=== PATIENT | female | born 1995 | race Caucasian/White ===

== ENCOUNTER 2016-08-26 15:33 | Emergency (ER) | payer OTHER ==
--- NOTE | 2016-08-26 17:27 | ED ---
Respiratory - HPI Summary HPI Summary: 21 F with dry cough and chills since Friday. She was diagnosed with bronchitis two weeks ago and prescribed amoxicillin and prednisone which she says resolved her symptoms. she developed generalized aches, chills, sore throat, sinus congestions, and one episode of loose stool starting on friday. she has been taking Tylenol mucinex,and and using an inhaler which has been helping. - History of Current Complaint Chief Complaint: UCRespiratory Stated Complaint: COUGH Time Seen by Provider: 08/26/16 17:16 - Allergy/Home Medications Allergies/Adverse Reactions: Allergies Allergy/AdvReac Type Severity Reaction Status Date / Time No Known Allergies Allergy Verified 08/26/16 16:53 Home Medications: Home Medications Acetaminophen TAB* [Tylenol TAB*] 1 tab PRN 08/26/16 [History] Levalbuterol HFA INHALER* [Xopenex Hfa Inhaler*] 1 puff PRN 08/26/16 [History] PMH/Surg Hx/FS Hx/Imm Hx Endocrine/Hematology History: Denies: Hx Anticoagulant Therapy Cardiovascular History: Denies: Hx Hypertension Respiratory History: Denies: Hx Asthma - Exercise-induced Musculoskeletal History: Reports: Other Musculoskeletal History - Surgical History Surgery Procedure, Year, and Place: LEFT hand. RIGHT foot- pin placed in toe Infectious Disease History: No Infectious Disease History: Denies: Traveled Outside the [place] in Last 30 Days - Family History Known Family History: Negative: Cardiac Disease - Social History Occupation: Student Alcohol Use: None Substance Use Type: Reports: None Smoking Status (MU): Never Smoked Tobacco Review of Systems Negative: Fever Positive: Sore Throat, Nasal Discharge Negative: Chest Pain Positive: Cough. Negative: Shortness Of Breath Positive: Diarrhea - one episode of loose stool. Negative: Abdominal Pain, Vomiting, Nausea All Other Systems Reviewed And Are Negative: Yes Physical Exam Triage Information Reviewed: Yes Vital Signs On Initial Exam: Initial Vitals Temp Pulse Resp BP Pulse Ox 99 F 82 18 124/89 98 08/26/16 16:55 08/26/16 16:55 08/26/16 16:55 08/26/16 16:55 08/26/16 16:55 Vital Signs Reviewed: Yes Appearance: Positive: Well-Appearing Skin: Positive: Warm, Dry Head/Face: Positive: Normal Head/Face Inspection Eyes: Positive: Normal, EOMI, Conjunctiva Clear ENT: Positive: Normal ENT inspection, Pharyngeal erythema, Nasal congestion, TMs normal. Negative: Tonsillar swelling, Tonsillar exudate, Trismus, Muffled/ hoarse voice Neck: Positive: Supple, Nontender, No Lymphadenopathy Respiratory/Lung Sounds: Positive: Clear to Auscultation, Breath Sounds Present , Other - neg egophony. Negative: Wheezes Cardiovascular: Positive: Normal, RRR Diagnostics - Vital Signs Vital Signs Temp Pulse Resp BP Pulse Ox 08/26/16 16:55 99 F 82 18 124/89 98 - Laboratory Lab Statement: Any lab studies that have been ordered have been reviewed, and results considered in the medical decision making process. Disposition - Course Course Of Treatment: 21 F presents with cold like symptoms for 2 days. had previous episode of bronchitis this month that resolved. denies any wehazing or SOB, has old inahler that has been using and says helps with the cough, discussed centor criteria zero so unlikely to be strept, do not hear any evidence of conslidation on exam so unlikely to have pneumonia at this point, discussed that has viral illness, will treat supporatively, patient agrees with plan - Differential Dx - Cardiopulmonary Differential Diagnoses - Cardiopulmonary: Bronchitis, Influenza, Lower Resp Infection, Other - pneumonia - Diagnoses Provider Diagnoses: Bronchitis Discharge - Discharge Plan Condition: Good Disposition: HOME Prescriptions: Benzonatate CAP* [Tessalon CAP*] 100 mg PO TID #15 cap Fluticasone NASAL SPRAY 50MCG* [Flonase NASAL SPRAY 50MCG*] 2 spray BOTH NARES DAILY #1 btl Patient Education Materials: Acute Bronchitis (ED) Referrals: Non Staff,Doctor [Primary Care Provider] - Additional Instructions: Use Tessalon three times a day for cough Use intranasal steroid one spray each nostril twice a day Use inhaler as needed every 4-6 hours for cough Use saline in the nose Use humidifier or place warm bowls of water around the room Cough can last up to 4 weeks Follow up with Sonny in 7 days Return to ED if develop chest pain or shortness of breath or any new or worsening symptoms
== END 2016-08-26 17:41 | disposition home or self-care (01) ==
LOC: UCEAST 15:33
DX: J40 Bronchitis, not specified as acute or chronic (principal)
CPT/HCPCS: 99202; G0463

== ENCOUNTER 2018-08-25 22:41 | Emergency (ER) | payer OTHER ==
--- NOTE | 2018-08-25 23:53 | ED ---
Palpitations / Dysrhythmia - HPI Summary HPI Summary: Pt is a 23 y/o female who presents to the ED c/o palpitations. She states for the past 6 days shes been having intermittent palpitations. The palpitations are described as slowing down then speeding up, with sometimes skipping beats. The symptoms are made worse with exertion, and she feels SOB when walking. Pt also c/o fatigue and intermittent sharp pain in the chest of her chest. She denies any cough, sore throat, syncope, or N/V/D. She notes that she occasionally has had palpitations in the past, but never to the extent of 6 days. Pt states her heart rate went up to 170 bpm yesterday when walking upstairs. Pt has a family hx of AFib. She notes the first week of classes to be a source of stress. - History of Current Complaint Chief Complaint: EDDysrhythmPalp Time Seen by Provider: 08/25/18 23:48 Hx Obtained From: Patient Onset/Duration: Gradual Onset, Lasting Days - 6 Timing: Intermittent Episodes Lasting: Severity Currently: None Character: Slow, Fast, Irregular Aggravating: Exertion Alleviating: Nothing Associated Signs & Symptoms: Chest Pain, Shortness of Breath - Allergy/Home Medications Allergies/Adverse Reactions: Allergies Allergy/AdvReac Type Severity Reaction Status Date / Time peanut Allergy Swelling Verified 08/25/18 22:52 Of Face,Lips,& Throat PMH/Surg Hx/FS Hx/Imm Hx Endocrine/Hematology History: Denies: Hx Anticoagulant Therapy Cardiovascular History: Denies: Hx Hypertension Respiratory History: Denies: Hx Asthma - Exercise-induced Musculoskeletal History: Reports: Other Musculoskeletal History - Surgical History Surgery Procedure, Year, and Place: LEFT hand. RIGHT foot- pin placed in toe Infectious Disease History: No Infectious Disease History: Reports: Traveled Outside the [place] in Last 30 Days - [place] - Family History Known Family History: Positive: Cardiac Disease - afib - Social History Alcohol Use: None Hx Substance Use: No Substance Use Type: Reports: None Hx Tobacco Use: No Smoking Status (MU): Never Smoked Tobacco Review of Systems Positive: Fatigue Negative: Sore Throat Positive: Palpitations, Chest Pain Positive: Shortness Of Breath. Negative: Cough Negative: Vomiting, Diarrhea, Nausea Negative: Syncope All Other Systems Reviewed And Are Negative: Yes Physical Exam - Summary Physical Exam Summary: Appearance: Well appearing, no pain distress Skin: warm, dry, reflects adequate perfusion Head/face: normal Eyes: EOMI, JU ENT: mucous membranes moist Neck: supple, non-tender, no thyromegaly Respiratory: CTA, breath sounds present Cardiovascular: RRR, pulses symmetrical Abdomen: non-tender, soft Bowel Sounds: present Musculoskeletal: normal, strength/ROM intact Neuro: normal, sensory motor intact, A&Ox3 Triage Information Reviewed: Yes Vital Signs On Initial Exam: Initial Vitals Temp Pulse Resp BP Pulse Ox 97.7 F 63 16 123/72 100 08/25/18 22:47 08/25/18 22:47 08/25/18 22:47 08/25/18 22:47 08/25/18 22:47 Vital Signs Reviewed: Yes Diagnostics - Vital Signs Vital Signs Temp Pulse Resp BP Pulse Ox 08/25/18 22:47 97.7 F 63 16 123/72 100 - Laboratory Result Diagrams: 08/25/18 23:59 08/25/18 23:59 Lab Statement: Any lab studies that have been ordered have been reviewed, and results considered in the medical decision making process. - EKG 22:59 Cardiac Rate: NL - [address] Segment: Normal Summary of EKG Findings: Short AK without delta waves, normal QRS, normal QTs Course/Dx - Course Course Of Treatment: Nurse's notes reviewed. Patient with history of intermittent palpitations who presents for evaluation of same. EKG is normal here and the patient is currently asymptomatic. Recommend outpatient Holter monitor after all laboratories here are normal. Family history for atrial fibrillation however patient describes more of a regular tachycardia possibly SVT or ectopy. - Diagnoses Differential Diagnosis/HQI/PQRI: Positive: Hyperventilation, Panic Disorder, Paroxymal SVT Provider Diagnoses: Palpitations Discharge - Sign-Out/Discharge Documenting (check all that apply): Patient Departure - Discharge - Discharge Plan Condition: Stable Disposition: HOME Patient Education Materials: Heart Palpitations (ED) Referrals: [facility] [Provider Group] Additional Instructions: Call [facility] first thing in the morning to schedule prompt follow-up. They can help arrange for placement of a Holter monitor and possible consultation with a corn shucker. Return with repetitive/persistent palpitations, chest pain, difficulty breathing, worse, new symptoms or other concerns. - Billing Disposition and Condition Condition: STABLE Disposition: Home - Attestation Statements Document Initiated by Scribe: Yes Documenting Scribe: Sola Hartman Provider For Whom Scribe is Documenting (Include Credential): Terrance Clarke MD Scribe Attestation: Sola Mercado, scribed for Terrance Clarke MD on 08/26/18 at 0138. Scribe Documentation Reviewed: Yes Provider Attestation: The documentation as recorded by the Sola us accurately reflects the service I personally performed and the decisions made by Terrance hood MD Status of Scribe Document: Viewed
[2018-08-26 00:21] LABS: ABS Basophils 0 10^3/ul (0-0.2); ABS Eosinophils 0.1 10^3/ul (0-0.6); ABS Lymphocytes 2.9 10^3/ul (1.0-4.8); ABS Monocytes 0.7 10^3/ul (0-0.8); ABS Neutrophils 4.3 10^3/ul (1.5-7.7); ABS Nucleated RBC 0 10^3/ul; Eosinophil % 1.1 %; Hematocrit 41 % (35-47); Hemoglobin 13.6 g/dl (12.0-16.0); Mean Corpuscular HGB Conc 33 g/dl (31-36); Mean Corpuscular Hemoglobin 30 pg (27-31); Mean Corpuscular Volume 90 fL (80-97); Mean Platelet Volume 9.5 fL (7.4-10.4); Nucleated Red Blood Cells % 0.1; Platelet Count 247 10^3/ul (150-450); Red Blood Count 4.54 10^6/ul (4.00-5.40); Red Cell Distribution Width 13 % (10.5-15)
[2018-08-26 00:23] LABS: ALT 11 U/L (7-52); AST 15 U/L (13-39); Albumin 4.4 g/dL (3.2-5.2); Albumin/Globulin Ratio 1.7 (1-3); Alkaline Phosphatase 48 U/L (34-104); Anion Gap 6 mmol/L (2-11); BUN/Creatinine Ratio 28.6 (8-20); Blood Urea Nitrogen 20 mg/dL (6-24); CO2 Carbon Dioxide 24 mmol/L (22-32); Calcium 9.3 mg/dL (8.6-10.3); Chloride 105 mmol/L (101-111); EGFR African American 126.6 (>60); EGFR Non-African American 104.6 (>60); Globulin 2.6 g/dL (2-4); Glucose 99 mg/dL (70-100); Potassium 3.8 mmol/L (3.5-5.0); Sodium 135 mmol/L (135-145)
[2018-08-26 00:30] LABS: HCG Pregnancy < 0.60 mIU/mL
[2018-08-26 00:34] VITALS: BP 114/63
[2018-08-26 00:44] LABS: TSH (Thyroid Stimulating Horm) 1.98 mcIU/mL (0.34-5.60)
== END 2018-08-26 00:49 | disposition home or self-care (01) ==
LOC: ED 22:41
DX: R00.2 Palpitations (principal); R06.02 Shortness of breath; R53.83 Other fatigue; R07.89 Other chest pain; Z91.010 Allergy to peanuts; Z82.49 Family history of ischemic heart disease and other diseases of the circulatory system
CPT/HCPCS: 36415; 80053; 84443; 84702; 85025; 93005; 99282